=== PATIENT | male | born 1950 | race Caucasian/White ===

== ENCOUNTER 2019-02-20 22:56 | Observation (INO) | payer MEDICARE, BC ==
[~2019-02-20] VITALS: Ht 172.7 cm; Wt 118.8 kg
[~2019-02-20 22:56] MED LIST: ALPR-623 PO; ASPI81TA44 PO; ATOR40TA PO; COU5T PO; ENOX60SY7 SUBCUT; FURO40TA4 PO; HYDR-4353 PO; NITR0.4T51 SL; PANT40TA4 PO; POTA20TA19 PO; RANO10003 PO; ZOLP10TA5 PO
[2019-02-20 23:38] LABS: BASOPHILS # (AUTO) 0.1 X10'3 (0-0.2); BASOPHILS % (AUTO) 0.7 % (0-1); EOSINOPHILS # (AUTO) 0.1 X10'3 (0-0.9); EOSINOPHILS % (AUTO) 1.8 % (0-6); HEMATOCRIT 48.1 % (42.0-52.0); HEMOGLOBIN 16.4 g/dl (14.0-17.9); LYMPHOCYTES # (AUTO) 2.2 X10'3 (1.1-4.8); LYMPHOCYTES % (AUTO) 28.1 % (21-51); MEAN CORPUSCULAR HEMOGLOBIN 31.3 PG (27.0-31.0); MEAN CORPUSCULAR HGB CONC 34.2 g/dL (33.0-36.5); MEAN CORPUSCULAR VOLUME 91.5 FL (78-98); MEAN PLATELET VOLUME 8.3 FL (7.4-10.4); MONOCYTES # (AUTO) 0.7 X10'3 (0-0.9); MONOCYTES % (AUTO) 9.2 % (2-12); NEUTROPHILS # (AUTO) 4.6 X10'3 (1.8-7.7); NEUTROPHILS % (AUTO) 60.2 % (42-75); PLATELET COUNT 205 X10'3 (140-440); RED BLOOD COUNT 5.25 X10'6 (4.70-6.10); RED CELL DISTRIBUTION WIDTH 13.5 % (11.5-14.5); WHITE BLOOD COUNT 7.7 X10'3 (4.5-11.0)
[2019-02-20 23:52] LABS: PARTIAL THROMBOPLASTIN TIME 27 SECONDS (22-32)
[2019-02-20 23:54] LABS: ALANINE AMINOTRANSFERASE 37 U/L (12-78); ALBUMIN 3.7 G/DL (3.4-5.0); ALKALINE PHOSPHATASE 77 IU/L (46-116); ANION GAP 7 (8-16); ASPARTATE AMINO TRANSFERASE 12 U/L (10-37); BILIRUBIN,TOTAL 0.5 MG/DL (0.1-1.0); BLOOD UREA NITROGEN 17 MG/DL (7-18); BUN/CREATININE RATIO 17.9 (5.4-32.0); CALCIUM 9.1 MG/DL (8.5-10.1); CHLORIDE 106 MMOL/L (99-107); CREATININE 0.95 MG/DL (0.60-1.10); GLUCOSE 108 MG/DL (70-104); POTASSIUM 3.7 MMOL/L (3.5-5.1); SODIUM 140 MMOL/L (135-145); TOTAL CARBON DIOXIDE 26.8 MMOL/L (24-32); TOTAL PROTEIN 7.4 G/DL (6.4-8.2); eGFR 79 ML/MIN
[2019-02-21] MEDS ORDERED: nitroGLYCERIN 1gm ointment UD TP STA (00:32)
[2019-02-21] MEDS ORDERED: morphine 4 MG/ML inj SYRINge IV ONE (00:35)
[2019-02-21] MEDS ORDERED: ondansetron/PF 4mg/2ml inj IV ONE (00:35)
[2019-02-21] MEDS ORDERED: LOSA25TA96 PO (01:06)
[2019-02-21] MEDS ORDERED: DICL100G15 TOP (01:06)
[2019-02-21] MEDS ORDERED: APIX5TAB3 PO (01:06)
[2019-02-21] MEDS ORDERED: MULT-955 PO (01:06)
[2019-02-21] MEDS ORDERED: nitroGLYCERIN 0.4mg SUBLingual tab SL PRN (01:20)
[2019-02-21] MEDS ORDERED: acetaminophen 325mg tablet PO PRN ×2 (01:20)
[2019-02-21] MEDS ORDERED: magnesium hydroxide 30ml (MOM) UD suspension PO PRN (01:20)
[2019-02-21] MEDS ORDERED: HYDROcodone/acetaminophen 10/325mg tab PO PRN (01:20)
[2019-02-21] MEDS ORDERED: ondansetron/PF 4mg/2ml inj IV PRN (01:20)
[2019-02-21] MEDS ORDERED: ALPRAZolam 0.25mg tablet PO PRN (01:20)
[2019-02-21] MEDS ORDERED: mag hydrox/Alum hydrox/simeth 30ml oral suspension PO PRN (01:20)
[2019-02-21] MEDS: DICLOFENAC SODIUM 1 GM TOP SCH ×4 (02:00→20:00)
[2019-02-21] MEDS: normal saline 1000ml 1,000 ML IV SCH ×3 (02:08→22:26)
--- NOTE | 2019-02-21 03:23 | NUR ---
I HAVE RECEIVED REPORT FROM CATY MATOS IN ED. ALL QUESTIONS AND CONCERNS ADDRESSED AT THIS TIME. ROOM 3027A PREPPED AND READY TO RECEIVE PATIENT
[2019-02-21 03:45] VITALS: BP 143/74
[2019-02-21] MEDS: HYDROcodone/acetaminophen 5mg/325mg tablet PO PRN ×2 (04:19→13:42)
--- NOTE | 2019-02-21 06:26 | NUR ---
Patient in room U 3027. I have received report from Jael BYRNE and had the opportunity to ask questions and assume patient care. Addendum: 02/21/19 at 0627 by Lo Valdez RN Amended: Links added.
[2019-02-21 07:11] VITALS: BP 108/63
[2019-02-21] MEDS: atorvastatin 20mg tablet PO SCH (07:32)
[2019-02-21] MEDS: multivitamins, therapeutics tablet PO SCH (07:32)
[2019-02-21] MEDS: furosemide 40mg tablet PO SCH (07:32)
[2019-02-21] MEDS: potassium Cl 20 mEq SR tablet PO SCH (07:32)
[2019-02-21] MEDS: pantoprazole 40mg Tablet.DR PO SCH (07:33)
[2019-02-21] MEDS: ranolazine 500mg SR tablet (Q12H) PO SCH ×2 (07:33→21:02)
[2019-02-21] MEDS: losartan 25mg tablet PO SCH (07:33)
[2019-02-21] MEDS ORDERED: apixaban 5mg tablet PO SCH (08:00)
[2019-02-21 11:00] VITALS: BP 105/59
--- NOTE | 2019-02-21 13:50 | NUR ---
Citlali Palmer called to inform RN that pt's heart cath will happen tomorrow at 0630 instead of this evening. Pt. will be NPO after MN.
[2019-02-21 15:00] VITALS: BP 110/63
--- NOTE | 2019-02-21 18:00 | NUR ---
Patient in room PCU 3027. I have received report from Lo BYRNE and had the opportunity to ask questions and assume patient care.
--- NOTE | 2019-02-21 18:10 | NUR ---
Problems reprioritized. Patient report given, questions answered & plan of care reviewed with Xiomara BYRNE.
--- NOTE | 2019-02-21 18:30 | NUR ---
Patient in room PCU 3027. I have received report from and had the opportunity to ask questions and assume patient care with Xiomara BYRNE.
[2019-02-21] MEDS: zolpidem 5mg tablet PO PRN (22:49)
[2019-02-21 23:00] VITALS: BP 112/47
--- NOTE | 2019-02-21 23:23 | NUR ---
pt stated that he has not had ebola, he did have E coli in his blood in the past. He misspoke once and it has made it into his history.
[2019-02-22] VITALS (11 sets, daily range): BP systolic 105–152; BP diastolic 50–72
[2019-02-22] MEDS: DICLOFENAC SODIUM 1 GM TOP SCH ×3 (01:51→14:00)
--- NOTE | 2019-02-22 05:12 | NUR ---
Pt slept well all night. Was reminded that He is NPO for his procedure today. No NORCO given for pain. Ambien given for sleep at 2200. CPAP was on all night.
[2019-02-22 05:48] LABS: BASOPHILS % (AUTO) 0.4 % (0-1); EOSINOPHILS # (AUTO) 0.1 X10'3 (0-0.9); HEMATOCRIT 45.7 % (42.0-52.0); HEMOGLOBIN 15.6 g/dl (14.0-17.9); LYMPHOCYTES # (AUTO) 1.8 X10'3 (1.1-4.8); LYMPHOCYTES % (AUTO) 25.1 % (21-51); MEAN CORPUSCULAR HEMOGLOBIN 31.1 PG (27.0-31.0); MEAN CORPUSCULAR VOLUME 91.4 FL (78-98); MEAN PLATELET VOLUME 8.2 FL (7.4-10.4); MONOCYTES # (AUTO) 0.7 X10'3 (0-0.9); MONOCYTES % (AUTO) 9.1 % (2-12); NEUTROPHILS # (AUTO) 4.6 X10'3 (1.8-7.7); NEUTROPHILS % (AUTO) 63.4 % (42-75); PLATELET COUNT 183 X10'3 (140-440); RED BLOOD COUNT 5.01 X10'6 (4.70-6.10); RED CELL DISTRIBUTION WIDTH 13.6 % (11.5-14.5); WHITE BLOOD COUNT 7.2 X10'3 (4.5-11.0)
[2019-02-22] MEDS ORDERED: midazolam 2 mg/2 ml injection ONE (05:59)
[2019-02-22] MEDS ORDERED: fentaNYL/PF 50MCG/1 ML 2ML syringe ONE (05:59)
[2019-02-22] MEDS ORDERED: LIDOcaine 1% (10mg/ml)w/preservative injection 20ml MDV ONE (05:59)
[2019-02-22] MEDS ORDERED: iohexol 350MG/ML 100ml bottle IV ONE ×2 (05:59→06:39)
--- NOTE | 2019-02-22 06:25 | NUR ---
Patient in room PCU 3027. I have received report from Baylee BYRNE/ Xiomara BYRNE and had the opportunity to ask questions and assume patient care.
[2019-02-22 06:29] LABS: ALBUMIN 3.3 G/DL (3.4-5.0); ANION GAP 10 (8-16); BLOOD UREA NITROGEN 17 MG/DL (7-18); BUN/CREATININE RATIO 17.7 (5.4-32.0); CALCIUM 8.6 MG/DL (8.5-10.1); CHLORIDE 107 MMOL/L (99-107); CHOL/HDL RATIO 3.2 (0.00-4.99); CHOLESTEROL 105 MG/DL (0-200); CREATININE 0.96 MG/DL (0.60-1.10); GLUCOSE 100 MG/DL (70-104); HDL CHOLESTEROL 33 MG/DL (35-60); LDL CHOLESTEROL 61 MG/DL (50-100); POTASSIUM 3.9 MMOL/L (3.5-5.1); SODIUM 140 MMOL/L (135-145); TOTAL CARBON DIOXIDE 23.2 MMOL/L (24-32); TRIGLYCERIDES 120 MG/DL (20-135); eGFR 78 ML/MIN
--- NOTE | 2019-02-22 06:30 | NUR ---
[place] documentation: I have reviewed and agree with all interventions, assessments performed and documented by Xiomara BYRNE.
--- NOTE | 2019-02-22 06:30 | NUR ---
Problems reprioritized. Patient report given, questions answered & plan of care reviewed with Julia BYNRE.
--- NOTE | 2019-02-22 06:32 | NUR ---
Problems reprioritized. Patient report given, questions answered & plan of care reviewed with Julia BYRNE.
[2019-02-22] MEDS ORDERED: ticagrelor 90mg tablet ONE (06:39)
[2019-02-22] MEDS ORDERED: heparin 1,000unit/ml 10ml vial 10 ML ONE (06:39)
--- NOTE | 2019-02-22 06:58 | NUR ---
Received call from labor law professor stating patient is on their way back to floor. Entered Right Groin and closed with a perclose. Able to gradually get up in 2 hours. Okay to eat once arrives to floor.
[2019-02-22] MEDS: normal saline 1000ml 1,000 ML IV SCH (07:15)
[2019-02-22] MEDS ORDERED: ondansetron/PF 4mg/2ml inj IV PRN (08:15)
[2019-02-22] MEDS ORDERED: OXAZEpam 15mg capsule PO PRN (08:15)
[2019-02-22] MEDS ORDERED: proCHLORperazine 10 MG/2 ml inj IV PRN (08:15)
[2019-02-22] MEDS ORDERED: nitroGLYCERIN 0.4mg SUBLingual tab SL PRN (08:15)
[2019-02-22] MEDS: pantoprazole 40mg Tablet.DR PO SCH (08:27)
[2019-02-22] MEDS: multivitamins, therapeutics tablet PO SCH (08:27)
[2019-02-22] MEDS: furosemide 40mg tablet PO SCH (08:27)
[2019-02-22] MEDS: losartan 25mg tablet PO SCH (08:27)
[2019-02-22] MEDS: potassium Cl 20 mEq SR tablet PO SCH (08:27)
[2019-02-22] MEDS: ranolazine 500mg SR tablet (Q12H) PO SCH ×2 (08:28→19:16)
[2019-02-22] MEDS: atorvastatin 20mg tablet PO SCH (08:28)
[2019-02-22] MEDS ORDERED: aspirin 325mg tablet PO SCH ×2 (08:30)
[2019-02-22] MEDS ORDERED: TICA90TA PO (08:55)
[2019-02-22] MEDS: aspirin 81mg tab.chew PO SCH (11:10)
--- NOTE | 2019-02-22 14:10 | NUR ---
Patient no longer takes Voltaren gel. Held it today and also did not bring it in.
--- NOTE | 2019-02-22 15:15 | NUR ---
Paged hospitalist "[phone]- please call re: 3021 A please."
--- NOTE | 2019-02-22 16:42 | NUR ---
Dany hospitalist , "kamlesh [phone]- please call nurse re: 3023 A. Pt. states he's feeling short of breath which is new for him since starting brilinta medication." Waiting concierge receptionist back. Also called Dr. Luke stanford to discuss patient's concerns and informed them he had said he spoke to Dr. Cole's speech language pathology assistant and she said that his signs and symptoms could be related to a reaction to Brilinta. Waiting to hear back from Dr. Luke stanford. Dr. Austin called back and states to let him know what Dr. Luke stanford says.
--- NOTE | 2019-02-22 17:07 | NUR ---
Spoke to Dr. Austin and he discontinued brillinta. Made him aware that this nurse has not heard from Dr. Butler office regarding the brillinta order. Decided to keep patient overnight until the medication is figured out and to monitor the s/sx of sob and "lightheadedness".
--- NOTE | 2019-02-22 18:00 | NUR ---
Patient in room PCU 3027. I have received report from Julia BYRNE and had the opportunity to ask questions and assume patient care.
--- NOTE | 2019-02-22 18:15 | NUR ---
Problems reprioritized. Patient report given, questions answered & plan of care reviewed with Baylee BYRNE/ Xiomara BYRNE.
[2019-02-22] MEDS ORDERED: ticagrelor 90mg tablet PO SCH (20:00)
[2019-02-22] MEDS: zolpidem 5mg tablet PO PRN (21:51)
[2019-02-23 03:00] VITALS: BP 127/77
[2019-02-23 04:40] LABS: BASOPHILS % (AUTO) 0.5 % (0-1); EOSINOPHILS # (AUTO) 0.1 X10'3 (0-0.9); EOSINOPHILS % (AUTO) 1.7 % (0-6); HEMATOCRIT 45.2 % (42.0-52.0); HEMOGLOBIN 15.5 g/dl (14.0-17.9); LYMPHOCYTES # (AUTO) 1.9 X10'3 (1.1-4.8); LYMPHOCYTES % (AUTO) 25.9 % (21-51); MEAN CORPUSCULAR HEMOGLOBIN 31.4 PG (27.0-31.0); MEAN CORPUSCULAR HGB CONC 34.4 g/dL (33.0-36.5); MEAN CORPUSCULAR VOLUME 91.4 FL (78-98); MEAN PLATELET VOLUME 8.1 FL (7.4-10.4); MONOCYTES # (AUTO) 0.8 X10'3 (0-0.9); MONOCYTES % (AUTO) 11.6 % (2-12); NEUTROPHILS # (AUTO) 4.4 X10'3 (1.8-7.7); NEUTROPHILS % (AUTO) 60.3 % (42-75); PLATELET COUNT 196 X10'3 (140-440); RED BLOOD COUNT 4.94 X10'6 (4.70-6.10); RED CELL DISTRIBUTION WIDTH 13.7 % (11.5-14.5); WHITE BLOOD COUNT 7.3 X10'3 (4.5-11.0)
[2019-02-23 04:45] LABS: ALBUMIN 3.5 G/DL (3.4-5.0); ANION GAP 7 (8-16); BLOOD UREA NITROGEN 16 MG/DL (7-18); BUN/CREATININE RATIO 17.6 (5.4-32.0); CALCIUM 8.8 MG/DL (8.5-10.1); CHLORIDE 105 MMOL/L (99-107); CREATININE 0.91 MG/DL (0.60-1.10); GLUCOSE 102 MG/DL (70-104); POTASSIUM 3.5 MMOL/L (3.5-5.1); SODIUM 138 MMOL/L (135-145); TOTAL CARBON DIOXIDE 26.5 MMOL/L (24-32); eGFR 83 ML/MIN
--- NOTE | 2019-02-23 05:52 | NUR ---
Patient slept well all night. No dizziness. Eager to go home today.
--- NOTE | 2019-02-23 06:25 | NUR ---
Patient in room PCU 3027. I have received report from Baylee BYRNE/Xiomara BYRNE and had the opportunity to ask questions and assume patient care.
--- NOTE | 2019-02-23 06:30 | NUR ---
Problems reprioritized. Patient report given, questions answered & plan of care reviewed with Julia BYRNE .
--- NOTE | 2019-02-23 06:35 | NUR ---
[place] documentation: I have reviewed and agree with all interventions, assessments performed and documented by Xiomara BYRNE.
--- NOTE | 2019-02-23 06:35 | NUR ---
Problems reprioritized. Patient report given, questions answered & plan of care reviewed with Julia Johnson.
[2019-02-23 06:50] VITALS: BP 116/65
[2019-02-23] MEDS ORDERED: clopidogrel 300mg tablet PO ONE (07:30)
[2019-02-23] MEDS: ranolazine 500mg SR tablet (Q12H) PO SCH (07:40)
[2019-02-23] MEDS: losartan 25mg tablet PO SCH (07:40)
[2019-02-23] MEDS: furosemide 40mg tablet PO SCH (07:40)
[2019-02-23] MEDS: multivitamins, therapeutics tablet PO SCH (07:40)
[2019-02-23] MEDS: pantoprazole 40mg Tablet.DR PO SCH (07:40)
[2019-02-23] MEDS: atorvastatin 20mg tablet PO SCH (07:40)
[2019-02-23] MEDS: potassium Cl 20 mEq SR tablet PO SCH (07:41)
[2019-02-23] MEDS ORDERED: apixaban 5mg tablet PO SCH (08:00)
[2019-02-23] MEDS ORDERED: clopidogrel 75mg tablet PO SCH (08:00)
[2019-02-23] MEDS: aspirin 81mg tab.chew PO SCH (08:29)
--- NOTE | 2019-02-23 09:08 | NUR ---
Paged hospitalist "kamlesh [phone]- please all re: 3022 A for discharge nonemergent." Waiting on callback
[2019-02-23] MEDS ORDERED: CLOP75TA15 PO (10:12)
[2019-02-23 11:00] VITALS: BP 111/62
--- NOTE | 2019-02-23 12:00 | NUR ---
ORIENTEE documentation: I have reviewed and agree with all interventions, assessments performed and documented by Lianet PITTMAN RN.
--- NOTE | 2019-02-23 12:10 | NUR ---
PATIENT DISCHARGED AT THIS TIME WITHOUT EVENT, ESCORTED OUT VIA [facility] STAFF AND [employer]IVATE [employer] VEHICLE. IV REMOVED, TELE DC'D, BELONGINGS SENT WITH PATIENT, DISCUSSED DISCHARGE INSTRUCTIONS AT THIS TIME VERBALIZED UNDERSTANDING. ZHANNA DROPPED OFF NEW MEDICATION. PATIENT EAGER TO GO HOME. WILL FOLLOW UP WITH DR. CLARK'S OFFICE Mar AT 0900 (EARLIEST TIME).
== END 2019-02-23 12:15 | disposition home or self-care (01) ==
LOC: ER 22:57 → PCU 3S 02-21 03:28
PROVIDERS: ADMIT Hospitalist; ATTEND Hospitalist
DX: I11.0 Hypertensive heart disease with heart failure (principal); I50.22 Chronic systolic (congestive) heart failure; R07.9 Chest pain, unspecified; E78.00 Pure hypercholesterolemia, unspecified; I25.2 Old myocardial infarction; I48.91 Unspecified atrial fibrillation; E11.9 Type 2 diabetes mellitus without complications; I25.110 Atherosclerotic heart disease of native coronary artery with unstable angina pectoris; E78.5 Hyperlipidemia, unspecified; E66.9 Obesity, unspecified; L40.9 Psoriasis, unspecified; Z95.1 Presence of aortocoronary bypass graft
CPT/HCPCS: 36415; 71045; 80048; 80053; 80061; 83036; 84484; 85025; 85610; 85730; 87081; 93005; 93459; 96374; 96375; 99284; C1725; C1769; C1874; C9604; G0378; J1644; J2001; J2250; J2270; J2405; J3010; J7030; Q9967; 93458; 99152; 99153; A4620; A6258; C1760

== ENCOUNTER 2021-10-22 05:08 | Emergency (ER) | payer MEDICARE, BC ==
[~2021-10-22] VITALS: Ht 172.7 cm; Wt 127.0 kg
[~2021-10-22 05:08] MED LIST changes: +APIX5TAB3 PO; -ASPI81TA44 PO; +CLOP75TA15 PO; -COU5T PO; -ENOX60SY7 SUBCUT; +LOSA25TA96 PO; +MULT-955 PO; -PANT40TA4 PO; +PANT40TA54 PO; +POTA-207 PO; -POTA20TA19 PO
[2021-10-22 05:52] LABS: BASOPHILS % (AUTO) 0.6 % (0-1); EOSINOPHILS # (AUTO) 0.1 X10'3 (0-0.9); EOSINOPHILS % (AUTO) 2.3 % (0-6); HEMATOCRIT 46.5 % (42.0-52.0); HEMOGLOBIN 15.4 g/dl (14.0-17.9); LYMPHOCYTES # (AUTO) 2.1 X10'3 (1.1-4.8); LYMPHOCYTES % (AUTO) 31.8 % (21-51); MEAN CORPUSCULAR HEMOGLOBIN 29.6 PG (27.0-31.0); MEAN CORPUSCULAR HGB CONC 33.2 g/dL (33.0-36.5); MEAN CORPUSCULAR VOLUME 89.3 FL (78-98); MEAN PLATELET VOLUME 8.4 FL (7.4-10.4); MONOCYTES # (AUTO) 0.8 X10'3 (0-0.9); MONOCYTES % (AUTO) 11.6 % (2-12); NEUTROPHILS # (AUTO) 3.5 X10'3 (1.8-7.7); NEUTROPHILS % (AUTO) 53.7 % (42-75); PLATELET COUNT 231 X10'3 (140-440); RED BLOOD COUNT 5.21 X10'6 (4.70-6.10); WHITE BLOOD COUNT 6.5 X10'3 (4.5-11.0)
[2021-10-22 06:38] LABS: ALBUMIN 3.5 G/DL (3.4-5.0); ANION GAP 9 (8-16); BLOOD UREA NITROGEN 12 MG/DL (7-18); BUN/CREATININE RATIO 12.5 (5.4-32.0); CALCIUM 8.9 MG/DL (8.5-10.1); CHLORIDE 107 MMOL/L (99-107); CREATININE 0.96 MG/DL (0.60-1.10); GLUCOSE 101 MG/DL (70-104); POTASSIUM 3.3 MMOL/L (3.5-5.1); SODIUM 143 MMOL/L (135-145); TOTAL CARBON DIOXIDE 26.6 MMOL/L (24-32); eGFR 77 ML/MIN
[2021-10-22 06:44] LABS: ALANINE AMINOTRANSFERASE 41 U/L (12-78); ALKALINE PHOSPHATASE 56 IU/L (46-116); ASPARTATE AMINO TRANSFERASE 25 U/L (10-37); BILIRUBIN,TOTAL 0.7 MG/DL (0.1-1.0); TOTAL PROTEIN 7.1 G/DL (6.4-8.2)
[2021-10-22] MEDS ORDERED: isosorbide mononitrate 30mg tab.SR.24H PO ONE (06:55)
[2021-10-22 07:55] VITALS: BP 119/67
== END 2021-10-22 08:32 | disposition home or self-care (01) ==
LOC: ER 05:09
DX: I20.8 Other forms of angina pectoris (principal); R11.10 Vomiting, unspecified; R07.89 Other chest pain; I48.91 Unspecified atrial fibrillation; I10 Essential (primary) hypertension; E11.9 Type 2 diabetes mellitus without complications; Z86.711 Personal history of pulmonary embolism; Z86.19 Personal history of other infectious and parasitic diseases; Z98.890 Other specified postprocedural states; Z72.89 Other problems related to lifestyle; Z88.8 Allergy status to other drugs, medicaments and biological substances; Z79.899 Other long term (current) drug therapy
CPT/HCPCS: 36415; 71045; 80053; 83880; 84484; 85025; 93005; 99285